=== PATIENT | female | born 1990 | race African-American/Black ===

== ENCOUNTER 2016-11-12 18:08 | Inpatient (IN) | payer OTHER ==
[2016-11-12] VITALS (7 sets, daily range): BP systolic 110–148; BP diastolic 55–84
[~2016-11-12] VITALS: Ht 167.6 cm; Wt 90.3 kg
[~2016-11-12 18:08] MED LIST: ASPIR 8181 M1 PO; PRENATAL TABLE1 EAC3 PO
[2016-11-12 19:36] LABS: HEMATOCRIT 36.7 % (36.0-46.0); MCH 26.5 PG (29.0-34.0); MCHC 34.1 G/DL (30.0-36.0); MCV 77.9 FL (83-99); MEAN PLAT.VOLUME 10.5 uM^3 (9.5-12.4); PLATELET COUNT 219 K/uL (156-360); RBC DIS.WIDTH-CV 13.9 % (11.8-14.6); RBC DIS.WIDTH-SD 39.9 % (39-53); RED BLOOD COUNT 4.71 M/uL (3.80-5.20); WHITE BLOOD COUNT 8.2 K/uL (4.1-10.2)
[2016-11-12 19:42] LABS: EOSINOPHIL (%) 2.2 % (0-5); EOSINOPHIL COUNT 0.2 K/uL (0-0.3); IMMATURE GRANULOCYTE (%) 0.2 % (0.0-0.7); LYMPHOCYTE COUNT 1.6 K/uL (1.0-2.8); MONOCYTE (%) 7.6 % (3-12); MONOCYTE COUNT 0.6 K/uL (0-0.8); NEUTROPHIL (%) 70.1 % (45-76); NEUTROPHIL COUNT 5.7 K/uL (1.8-6.4)
[2016-11-13] VITALS (17 sets, daily range): BP systolic 119–149; BP diastolic 62–84
[2016-11-14 06:24] LABS: EOSINOPHIL (%) 2.3 % (0-5); EOSINOPHIL COUNT 0.2 K/uL (0-0.3); HEMATOCRIT 35.9 % (36.0-46.0); IMMATURE GRANULOCYTE (%) 0.7 % (0.0-0.7); IMMATURE GRANULOCYTE COUNT 0.1 K/uL; LYMPHOCYTE COUNT 2.3 K/uL (1.0-2.8); MCH 25.5 PG (29.0-34.0); MCHC 32.9 G/DL (30.0-36.0); MCV 77.5 FL (83-99); MEAN PLAT.VOLUME 10.3 uM^3 (9.5-12.4); MONOCYTE (%) 6.4 % (3-12); MONOCYTE COUNT 0.6 K/uL (0-0.8); NEUTROPHIL (%) 63.2 % (45-76); NEUTROPHIL COUNT 5.4 K/uL (1.8-6.4); PLATELET COUNT 196 K/uL (156-360); RBC DIS.WIDTH-CV 14.1 % (11.8-14.6); RBC DIS.WIDTH-SD 39.9 % (39-53); RED BLOOD COUNT 4.63 M/uL (3.80-5.20); WHITE BLOOD COUNT 8.6 K/uL (4.1-10.2)
[2016-11-14 07:45] VITALS: BP 120/67
[2016-11-14 11:00] VITALS: BP 131/71
[2016-11-14 15:00] VITALS: BP 135/81
[2016-11-14 19:25] VITALS: BP 129/74
[2016-11-14 22:53] VITALS: BP 136/68
[2016-11-15 03:03] VITALS: BP 136/69
[2016-11-15 08:30] VITALS: BP 142/81
[2016-11-15] MEDS ORDERED: IBUPROFEN800 MG PO (09:50)
[2016-11-15 12:00] VITALS: BP 138/86
[2016-11-15 16:00] VITALS: BP 142/90
== END 2016-11-15 18:33 | disposition home or self-care (01) | DRG 774 ==
LOC: LDRP-OP 18:08 → 2WEST 18:09 → LDRP-OP 12-16 18:55
PROVIDERS: Advanced Practice Midwife
DX: O10.92 Unspecified pre-existing hypertension complicating childbirth (principal); O99.824 Streptococcus B carrier state complicating childbirth; O70.0 First degree perineal laceration during delivery; O92.29 Other disorders of breast associated with pregnancy and the puerperium; Z37.0 Single live birth; Z3A.39 39 weeks gestation of pregnancy
CPT/HCPCS: 81003; 83030; 85025; 86850; 86870; 86900; 86901; 86905; 87070; 87075; 87205; G0378; J0595; J2540; J2790; J7120